=== PATIENT | male | born 1995 | race Two or more races ===

== ENCOUNTER 2018-03-16 18:28 | Emergency (ER) | payer BC ==
[2018-03-16] MEDS ORDERED: Tetan/Diph/Pertus SYR(Tdap)* 0.5 ML SYR(BOOSTRIX) use SYR IM ONE (20:30)
[2018-03-16 21:10] VITALS: BP 133/90
--- NOTE | 2018-03-16 21:32 | ED ---
Laceration/Wound HPI - HPI Summary HPI Summary: patient is an otherwise healthy 22-year-old male presenting to the ED with a laceration to the right index finger measuring approximately 1.5 cm. laceration is superficial and clean. He states he was cutting an avocado and the knife slipped and lacerated his finger. Nailbed not involved. Laceration on the palmar side. Denies any pain. Denies numbness or tingling. - History of Current Complaint Stated Complaint: RT POINTER FINGER LAC Time Seen by Provider: 03/16/18 18:59 Hx Obtained From: Patient Mechanism of Injury: Sharp/Blunt Trauma Onset/Duration: Sudden Onset Aggravating: Movement Alleviating: Compression Timing: Constant Onset Severity: Mild Current Severity: Mild Pain Intensity: 3 Pain Scale Used: 0-10 Numeric Associated Signs & Symptoms: Negative - Allergy/Home Medications Allergies/Adverse Reactions: Allergies Allergy/AdvReac Type Severity Reaction Status Date / Time No Known Allergies Allergy Verified 03/16/18 18:37 Home Medications: Home Medications NK [No Home Medications Reported] 03/16/18 [History Confirmed 03/16/18] PMH/Surg Hx/FS Hx/Imm Hx Previously Healthy: Yes - Immunization History Date of Tetanus Vaccine: last 2008 verified Hx Pertussis Vaccination: No Immunizations Up to Date: Yes Infectious Disease History: No Infectious Disease History: Denies: Traveled Outside the [place] in Last 30 Days - Social History Occupation: Unemployed, Student Lives: Dormitory/Roommates Alcohol Use: Rare Hx Substance Use: No Substance Use Type: Reports: None Hx Tobacco Use: No Smoking Status (MU): Never Smoked Tobacco Review of Systems Constitutional: Negative Negative: Fever, Chills, Fatigue, Skin Diaphoresis Negative: Palpitations, Chest Pain Genitourinary: Negative Positive: no symptoms reported, see HPI Negative: Arthralgia, Myalgia Positive: Other - 1.5 cm laceration to right index finger on palmar side. Negative: Rash, Bruising Neurological: Negative All Other Systems Reviewed And Are Negative: Yes Physical Exam Triage Information Reviewed: Yes Vital Signs On Initial Exam: Initial Vitals Temp Pulse Resp BP Pulse Ox 98.2 F 82 14 118/81 99 03/16/18 18:32 03/16/18 18:32 03/16/18 18:32 03/16/18 18:32 03/16/18 18:32 Vital Signs Reviewed: Yes Appearance: Positive: Well-Appearing, Well-Nourished Skin: Positive: Warm, Skin Color Reflects Adequate Perfusion, Other - Rt index finger lac Head/Face: Positive: Normal Head/Face Inspection Eyes: Positive: EOMI, ALISON, Conjunctiva Clear Neck: Positive: Supple, No Lymphadenopathy Respiratory/Lung Sounds: Positive: Clear to Auscultation, Breath Sounds Present Cardiovascular: Positive: RRR, Pulses are Symmetrical in both Upper and Lower Extremities Musculoskeletal: Positive: Normal, Strength/ROM Intact Neurological: Positive: Alert, Oriented to Person Place, Time, Speech Normal Psychiatric: Positive: Normal, Affect/Mood Appropriate AVPU Assessment: Alert Diagnostics - Vital Signs Vital Signs Temp Pulse Resp BP Pulse Ox 03/16/18 21:08 97.9 F 82 20 133/90 100 03/16/18 18:32 98.2 F 82 14 118/81 99 - Laboratory Lab Statement: Any lab studies that have been ordered have been reviewed, and results considered in the medical decision making process. Laceration Repair Course/Dx - Course Course Of Treatment: Patient is an otherwise healthy 22-year-old male presenting to the ED with right index finger laceration measuring 1.5 cm, superficial, bleeding is well-controlled. Adhesive glue applied with good effect. Appropriated edges well. Patient tolerated well. Steri-Strips applied and gauze wrapped. Tetanus updated on this date. - Clinical Impression Provider Diagnoses: Finger laceration Discharge - Sign-Out/Discharge Documenting (check all that apply): Patient Departure - Discharge Plan Condition: Stable Disposition: HOME Patient Education Materials: Laceration (ED) Referrals: No Primary Care Phys,NOPCP [Primary Care Provider] - - Billing Disposition and Condition Condition: STABLE Disposition: Home
== END 2018-03-16 21:08 | disposition home or self-care (01) ==
LOC: EDBD → ED 18:28
DX: S61.210A Laceration without foreign body of right index finger without damage to nail, initial encounter (principal); W26.0XXA Contact with knife, initial encounter; Y93.9 Activity, unspecified; Y92.9 Unspecified place or not applicable
CPT/HCPCS: 90471; 90715; 99282